=== PATIENT | female | born 1975 | race Caucasian/White ===

== ENCOUNTER 2020-10-07 12:12 | Emergency (ER) | payer OTHER ==
[~2020-10-07] VITALS: Ht 152.4 cm; Wt 70.5 kg
[2020-10-07 14:45] VITALS: BP 127/68
== END 2020-10-07 15:10 | disposition home or self-care (01) ==
LOC: EMS 12:17
DX: A15.9 Respiratory tuberculosis unspecified (principal)
CPT/HCPCS: 71045-TC